=== PATIENT | male | born 1975 | race Caucasian/White ===

== ENCOUNTER 2021-05-25 13:27 | Emergency (ER) | payer OTHER ==
[~2021-05-25] VITALS: Ht 188 cm; Wt 108.6 kg
[2021-05-25 13:27] VITALS: BP 156/117
--- NOTE | 2021-05-25 13:51 | PHYS DOC ---
General Adult EDM: Chief Complaint: ABDOMINAL PAIN HPI: HPI: Patient is a 45-year-old female who presents to the emergency department today for right flank pain that started yesterday that has worsened today. Patient rates his pain 8 out of 10 it is worse with movement. The pain does not radiate. No treatment prior to arrival. Patient has a history of testicular cancer with left testicle removal, hypertension, depression. He does not have a history of kidney stones. He is reporting diarrhea. He denies any nausea, vomiting, dysuria, hematuria, fevers, sick exposures, abdominal pain. Occasional alcohol use reported. (ES ERIC APRN) Review of Systems: Review of Systems: Constitutional: negative unless reported in HPI Eyes: negative unless reported in HPI HENT: negative unless reported in HPI Respiratory: negative unless reported in HPI Cardiovascular: negative unless reported in HPI GI: negative unless reported in HPI : negative unless reported in HPI Musculoskeletal: negative unless reported in HPI Integument: negative unless reported in HPI Neurologic: negative unless reported in HPI Endocrine: negative unless reported in HPI Lymphatic: negative unless reported in HPI Psychiatric: negative unless reported in HPI (ES ERIC APRN) Allergies: Allergies: Allergies Coded Allergies Type Severity Reaction Last Updated Verified No Known Drug Allergies 05/25/21 No (ES ERIC APRN) Physical Exam: PE: Constitutional: Well developed, well nourished, no acute distress, non-toxic appearance. [] HENT: Normocephalic, atraumatic, bilateral external ears normal, oropharynx moist, no oral exudates, nose normal. [] Eyes: PERRL, EOMI, conjunctiva normal, no discharge. [] Neck: Normal range of motion, no stridor Cardiovascular:Heart rate regular rhythm, no murmur [] Lungs & Thorax: Bilateral breath sounds clear to auscultation [] Abdomen: Bowel sounds normal, soft, no tenderness, no masses, no pulsatile masses. [] Skin: Warm, dry, no erythema, no rash. [] Back: No tenderness, right-sided CVA tenderness Extremities: No tenderness, no cyanosis, no clubbing, ROM intact, no edema. [] Neurologic: Alert and oriented X 3, normal motor function, normal sensory function, no focal deficits noted. [] Psychologic: Affect normal, judgement normal, mood normal. [] (ES ERIC [employer]) Current Patient Data: Labs: Laboratory Tests Test 05/25/21 13:38 05/25/21 14:09 Urine Collection Type Clean catch Urine Color Yellow Urine Clarity Hazy Urine pH 7.5 Urine Specific [place] 1.025 Urine Protein Neg Urine Glucose (UA) Neg mg/dL Urine Ketones (Stick) Neg mg/dL Urine Blood Trace Urine Nitrite Neg Urine Bilirubin Neg Urine Urobilinogen Dipstick 0.2 mg/dL Urine Leukocyte Esterase Neg Urine RBC Occ /HPF Urine WBC 0 /HPF Urine Squamous Epithelial Cells None /LPF Urine Amorphous Sediment Present /HPF Urine Bacteria 0 /HPF White Blood Count 7.0 x10^3/uL Red Blood Count 5.39 x10^6/uL Hemoglobin 17.0 g/dL Hematocrit 48.9 % Mean Corpuscular Volume 91 fL Mean Corpuscular Hemoglobin 32 pg Mean Corpuscular Hemoglobin Concent 35 g/dL Red Cell Distribution Width 12.6 % Platelet Count 288 x10^3/uL Neutrophils (%) (Auto) 58 % Lymphocytes (%) (Auto) 30 % Monocytes (%) (Auto) 8 % Eosinophils (%) (Auto) 3 % Basophils (%) (Auto) 1 % Neutrophils # (Auto) 4.1 x10^3uL Lymphocytes # (Auto) 2.1 x10^3/uL Monocytes # (Auto) 0.6 x10^3/uL Eosinophils # (Auto) 0.2 x10^3/uL Basophils # (Auto) 0.0 x10^3/uL Sodium Level 141 mmol/L Potassium Level 3.9 mmol/L Chloride Level 100 mmol/L Carbon Dioxide Level 28 mmol/L Anion Gap 13 Blood Urea Nitrogen 15 mg/dL Creatinine 1.1 mg/dL Estimated GFR (Cockcroft-Gault) 72.7 BUN/Creatinine Ratio 14 Glucose Level 102 mg/dL Calcium Level 9.7 mg/dL Total Bilirubin 0.6 mg/dL Aspartate Amino Transf (AST/SGOT) 27 U/L Alanine Aminotransferase (ALT/SGPT) 68 U/L Alkaline Phosphatase 76 U/L Total Protein 8.3 g/dL Albumin 4.6 g/dL Albumin/Globulin Ratio 1.2 Current Medications Medications (Trade) Dose Ordered Sig/Emilee Route PRN Reason Start Time Stop Time Status Last Admin Dose Admin Sodium Chloride 1,000 ml @ 1,000 mls/hr Q1H IV 05/25/21 14:00 05/25/21 14:59 DC 05/25/21 14:20 Fentanyl Citrate (Fentanyl 2ml Vial) 50 mcg 1X ONCE IVP 05/25/21 14:00 05/25/21 14:01 DC 05/25/21 14:20 Vital Signs: Vital Signs Date Time Temp Pulse Resp B/P (MAP) Pulse Ox O2 Delivery O2 Flow Rate FiO2 05/25/21 13:27 97.6 123 18 156/117 (130) 98 Room Air (ES ERIC APRN) EKG: EKG: [] (ES ERIC APRN) Radiology/Procedures: Radiology/Procedures: []PROCEDURE: CT ABDOMEN PELVIS WO CONTRAST CT abdomen and pelvis without contrast: Reason for examination: Right flank pain. Evaluate for renal stone. Helical images were obtained through the abdomen and pelvis with no intravenous or oral contrast administered. Reconstruction was performed in sagittal and coronal planes. Exposure: One or more of the following individualized dose reduction techniques were utilized for this examination: 1. Automated exposure control 2. Adjustment of the mA and/or kV according to patient size 3. Use of iterative reconstruction technique. The lung bases are clear. The heart size is normal with no pericardial effusion. There is diffuse fatty infiltration in the liver without a focal hepatic lesion seen. No abnormality seen at the spleen, adrenal glands, pancreas or gallbladder. The abdominal aorta and inferior vena cava show no acute abnormalities. The colon shows presence of a few scattered diverticuli but no evidence of diverticulitis or colitis is seen. No abnormality seen at the appendix. The small intestinal tract shows no abnormal dilatation, wall thickening or obstruction. No gross abnormality seen at the stomach or duodenum. The kidneys show no renal masses, renal calculi, hydronephrosis or evidence of obstructive uropathy. The bladder is not optimally distended but shows no gross abnormality. No abnormality seen at the prostate gland or seminal vesicles. There are phleboliths in the pelvis. No free fluid or free air is seen in the abdomen or pelvis. No acute bony abnormalities are seen. There are severe degenerative changes present at the L5-S1 disc level with mild grade 1 retrolisthesis of L5 on S1. IMPRESSION: Diffuse fatty infiltration in the liver without a focal hepatic lesion seen. No renal calculi, hydronephrosis or evidence of obstructive uropathy. Severe degenerative disc disease at the L5-S1 level with a mild grade 1 retrolisthesis of L5 on S1. Electronically signed by: Sarah Beth Jack MD (05/25/2021 2:25 PM) [id number] DICTATED AND SIGNED BY: SARAH BETH JACK MD DATE: 05/25/21 1412 CC: GERSON ADAN DO; ES ERIC APRN ~MTH0 0 (ES ERIC APRN) Heart Score: C/O Chest Pain: N/A Risk Factors: Risk Factors: DM, Current or recent (<one month) smoker, HTN, HLP, family history of CAD, obesity. Risk Scores: Score 0 - 3: 2.5% MACE over next 6 weeks - Discharge Home Score 4 - 6: 20.3% MACE over next 6 weeks - Admit for Clinical Observation Score 7 - 10: 72.7% MACE over next 6 weeks - Early Invasive Strategies (ES ERIC APRN) Course & Med Decision Making: Course & Med Decision Making Pertinent Labs and Imaging studies reviewed. (See chart for details) Patient presents to the emergency department today for right-sided flank pain th at started yesterday. Patient is also reporting diarrhea. Patient work-up in the ER consisted of blood work, urinalysis, CT imaging of abdomen and pelvis to rule out a kidney stone. Patient treated with IV fluids and pain medication. Patient is mildly tachycardic in the emergency department with a heart rate of 115, he is afebrile, blood pressure is 156/117. Patient reports that he took his blood pressure medication this morning. CBC and CMP were unremarkable. Urinalysis does show trace amount of blood but no leukocytes, white blood cells or bacteria. CT scan of abdomen and pelvis shows degenerative disc disease without any signs of renal calculi or hydronephrosis and a fatty liver. It is possible that patient recently passed a kidney stone due to the hematuria or he has a microscopic stone. Patient's heart rate has improved and is 99 bpm. Patient's blood pressure has improved to 147/108. He is asymptomatic. Patient reports that he takes 12.5 mg of hydrochlorothiazide. I advised patient to follow-up with his primary care provider regarding his antihypertensive medication management. He will be discharged home with pain medication. I discussed with patient all findings and diagnostic testing as well as the need to follow-up with PCP for further evaluation and treatment or return to the ER if any new or worsening symptoms. Strict return precautions were also discussed at length. Patient voiced understanding and agreement with the plan. Patient is hemodynamically stable at the time of disposition. (ES ERIC APRN) Course & Med Decision Making I was the Attending physician on the above date of service of this patient. This patient was evaluated, examined, treated, and dispositioned from the emergency department by the mid-level practitioner. I reviewed case and agreed to plan of care prior to patient discharge from ER Electronically signed, Neeraj Montgomery DO (NEERAJ MONTGOMERY DO) Jennifer Disclaimer: Jennifer Disclaimer: This electronic medical record was generated, in whole or in part, using a voice recognition dictation system. (ES ERIC APRN) Departure Departure: Impression: Primary Impression: Flank pain Disposition: HOME / SELF CARE / HOMELESS Condition: GOOD Referrals: GERSON ADAN DO (PCP) Patient Instructions: Flank Pain Additional Instructions: You were seen in the emergency department today for flank pain. As we discussed, you may recently passed a kidney stone or have a microscopic stone due to the blood in your urine in the absence of the stone visualized on the CT scan of your abdomen. Increase your fluids and you can take ibuprofen or naproxen for mild pain. For your severe pain you are being discharged home with [place]. This medication is hydrocodone and Tylenol and a combination tablet. Do not take any additional Tylenol with this medication. This medication may cause sedation so do not take any need to be alert, driving a vehicle or with alcohol. You were noted to have elevation in your blood pressure today. Please purchase a blood pressure cuff and monitor your blood pressure twice a day in the morning and at night and keep a log of this. You may need dosage adjustm ents for your antihypertensive medications. Follow-up with your primary care provider on Thursday regarding your ER visit. Return to the emergency department if you develop chest pain, shortness of breath, worsening of your pain, abdominal pain, high fevers refractory to treatment, intractable nausea or vomiting, inability to urinate or any new or worsening concerns. Scripts Hydrocodone Bit/Acetaminophen (HYDROCODONE-APAP 5-325 ) 1 Each Tablet 1 TAB PO PRN Q6HRS PRN for PAIN for 2 Days, #8 TAB 0 Refills Prov: ES ERIC APRN 05/25/21 ES ERIC APRN May 25, 2021 13:51 NEERAJ MONTGOMERY DO May 26, 2021 06:10
[2021-05-25] MEDS ORDERED: IV NORMAL SALINE 1,000ML 1,000 ML IV SCH (14:00)
[2021-05-25 14:23] LABS: CLARITY,URINE HAZY; COLOR,URINE YELLOW; GLUCOSE,URINE NEG (NEG)
[2021-05-25 14:24] LABS: AMORPHOUS SEDIMENT,UR PRESENT /HPF; BACTERIA,URINE 0 /HPF (0-FEW); NITRITE,URINE NEG (NEG); RBC,URINE OCC /HPF (0-2); UROBILINOGEN,URINE 0.2 mg/dL (0.2 mg/dL); WBC,URINE 0 /HPF (0-4)
--- NOTE | 2021-05-25 14:28 | RAD ---
CT abdomen and pelvis without contrast: Reason for examination: Right flank pain. Evaluate for renal stone. Helical images were obtained through the abdomen and pelvis with no intravenous or oral contrast admi nistered. Reconstruction was performed in sagittal and coronal planes. Exposure: One or more of the following individualized dose reduction techniques were utilized for thi s examination: 1. Automated exposure control 2. Adjustment of the mA and/or kV according to patient size 3. Use of iterative reconstruction technique. The lung bases are clear. The heart size is normal with no pericardial effusion. There is diffuse fatty infiltration in the liver without a focal hepatic lesion seen. No abnormality seen at the spleen, adrenal glands, pancreas or gallbladder. The abdominal aorta and inferior vena cava show no acute abnormalities. The colon shows presence of a few scattered diverticuli but no evidence of diverticulitis or colitis is seen. No abnormality seen at the appendix. The small intestinal tract shows no abnormal dilatation , wall thickening or obstruction. No gross abnormality seen at the stomach or duodenum. The kidneys show no renal masses, renal calculi, hydronephrosis or evidence of obstructive uropathy. The bladder is not optimally distended but shows no gross abnormality. No abnormality seen at the pro state gland or seminal vesicles. There are phleboliths in the pelvis. No free fluid or free air is seen in the abdomen or pelvis. No acute bony abnormalities are seen. There are severe degenerative changes present at the L5-S1 disc level with mild grade 1 retrolisthesis of L5 on S1. IMPRESSION: Diffuse fatty infiltration in the liver without a focal hepatic lesion seen. No renal calculi, hydronephrosis or evidence of obstructive uropathy. Severe degenerative disc disease at the L5-S1 level with a mild grade 1 retrolisthesis of L5 on S1. Electronically signed by: Sarah Beth Simon MD (05/25/2021 2:25 PM) [id number]
[2021-05-25 14:38] LABS: BASO % 1 % (0-3); EOS # 0.2 x10^3/uL (0.0-0.7); EOS % 3 % (0-3); HEMATOCRIT 48.9 % (39.0-53.0); LYMPH # 2.1 x10^3/uL (1.0-4.8); LYMPH % 30 % (24-48); MEAN CORPUSCULAR HEMOGLOBIN 32 pg (25-35); MEAN CORPUSCULAR HGB CONC 35 g/dL (31-37); MEAN CORPUSCULAR VOLUME 91 fL (79-100); MONO # 0.6 x10^3/uL (0.0-1.1); MONO % 8 % (0-9); NEUT # 4.1 x10^3uL (1.8-7.7); NEUT % 58 % (31-73); PLATELET COUNT 288 x10^3/uL (140-400); RED BLOOD COUNT 5.39 x10^6/uL (4.30-5.70); RED CELL DISTRIBUTION WIDTH 12.6 % (11.5-14.5)
[2021-05-25 14:46] LABS: CALCIUM 9.7 mg/dL (8.5-10.1); CREATININE 1.1 mg/dL (0.7-1.3); GFR 72.7; POTASSIUM 3.9 mmol/L (3.5-5.1)
[2021-05-25 14:52] LABS: ALBUMIN 4.6 g/dL (3.4-5.0); ALBUMIN/GLOBULIN RATIO 1.2 (1.0-1.7); TOTAL BILIRUBIN 0.6 mg/dL (0.2-1.0); TOTAL PROTEIN 8.3 g/dL (6.4-8.2)
[2021-05-25] MEDS ORDERED: HYDR-2155 PO (15:18)
== END 2021-05-25 15:28 | disposition home or self-care (01) ==
LOC: ER 13:27
DX: R10.9 Unspecified abdominal pain (principal); R19.7 Diarrhea, unspecified; Z85.47 Personal history of malignant neoplasm of testis
CPT/HCPCS: 36415; 74176; 80053; 81001; 85025; 96361; 96374; 99284; J3010; J7030